=== PATIENT | female | born 1975 | race Caucasian/White ===

== ENCOUNTER 2017-03-17 19:33 | Emergency (ER) | payer MEDICAID ==
[2017-03-17] MEDS: DEXAMETHASONE 10 MG/ML 1 ML INJ IM (21:27)
[2017-03-17] MEDS: IPRATROPIUM (NEB) 0.5 MG/2.5 ML AMP HHN (22:02)
[2017-03-17] MEDS: ALBUTEROL 0.083% (NEB) 2.5 MG/3 ML AMP HHN (22:02)
[2017-03-17] MEDS: LEVALBUTEROL (NEB) 1.25 MG/0.5 ML AMP INH (23:33)
== END 2017-03-18 00:57 | disposition home or self-care (01) ==
LOC: FTE 03-18 00:57
DX: J45.901 Unspecified asthma with (acute) exacerbation (principal)
CPT/HCPCS: 94644; 94664; 96372; 99284-25

== ENCOUNTER 2017-12-10 17:30 | Emergency (ER) | payer MEDICAID ==
[2017-12-10 18:56] LABS: ADD MAN DIFF? NO
[2017-12-10 18:59] LABS: URINE BLOOD (Dip) POC Negative (NEGATIVE); URINE GLUCOSE (Dip) POC Negative (NEGATIVE); URINE KETONES (Dip) POC 1+ (NEGATIVE); URINE LEUKOCYTE EST (Dip) POC Negative (NEGATIVE); URINE NITRITE (Dip) POC Negative (NEGATIVE); URINE TOTAL PROTEIN POC 2+ (NEGATIVE)
[2017-12-10 18:59] LABS: URINE PH (Dip) POC 8.5 (5.0-8.5)
[2017-12-10 19:02] LABS: WHITE BLOOD COUNT 17.4 10^3/ul (4.8-10.8)
[2017-12-10 19:02] LABS: BASOPHILS % 0.2 % (0.0-2.0); HEMATOCRIT 41.4 % (37.0-47.0); HEMOGLOBIN 13.9 g/dl (12.0-16.0); LYMPHOCYTES # 1.4 10^3/ul (0.8-2.9); LYMPHOCYTES % 8.3 % (15.0-51.0); MEAN CORPUSCULAR HEMOGLOBIN 26.9 pg (29.0-33.0); MEAN CORPUSCULAR HGB CONC 33.6 g/dl (32.0-37.0); MEAN CORPUSCULAR VOLUME 80.1 fl (82.0-101.0); MONOCYTE # 0.7 10^3/ul (0.3-0.9); MONOCYTES % 3.9 % (0.0-11.0); NEUTROPHIL # 15.1 10^3/ul (1.6-7.5); NEUTROPHILS % 86.9 % (39.0-77.0); PLATELET COUNT 187 10^3/UL (140-415); RED BLOOD COUNT 5.17 10^6/ul (4.20-5.40); RED CELL DISTRIBUTION WIDTH 14.8 % (11.5-14.5)
[2017-12-10] MEDS: SODIUM CHLORIDE 0.9% 1L BAG IV* (19:11)
[2017-12-10] MEDS: ACETAMINOPHEN 325 MG TAB PO (19:12)
[2017-12-10 19:20] LABS: ADD UMIC YES; UR ASCORBIC ACID NEGATIVE (NEGATIVE); UR BACTERIA FEW /HPF (NONE SEEN); UR BILIRUBIN (Dip) NEGATIVE (NEGATIVE); UR BLOOD (Dip) NEGATIVE (NEGATIVE); UR CLARITY SLIGHTLY CLOUDY (CLEAR); UR COLOR YELLOW (YELLOW); UR GLUCOSE (Dip) NEGATIVE (NEGATIVE); UR KETONES (Dip) 1+ mg/dL (NEGATIVE); UR LEUKOCYTE ESTERASE (Dip) NEGATIVE Leu/ul (NEGATIVE); UR MUCUS FEW /HPF (NONE SEEN); UR NITRITE (Dip) NEGATIVE (NEGATIVE); UR RBC 5 /HPF (0-5); UR SPECIFIC GRAVITY (Dip) 1.023 (1.003-1.030); UR SQUAMOUS EPITHELIAL CELL MODERATE /HPF (FEW); UR TOTAL PROTEIN (Dip) 2+ mg/dl (NEGATIVE); UR UROBILINOGEN (Dip) 1+ mg/dL (NEGATIVE); UR WBC 3 /HPF (0-5)
[2017-12-10 19:21] LABS: INR 1.19; PROTIME 15.3 Sec (11.9-14.9); PT RATIO 1.2
[2017-12-10 19:22] LABS: ALANINE AMINOTRANSFERASE 35 IU/L (13-69); ALBUMIN 4.3 g/dl (3.3-4.9); ALBUMIN/GLOBULIN RATIO 1.07; ALKALINE PHOSPHATASE 108 IU/L (42-121); ANION GAP 11 (5-13); ASPARTATE AMINO TRANSFERASE 37 IU/L (15-46); BILIRUBIN,INDIRECT 1.1 mg/dl (0-1.1); BILIRUBIN,TOTAL 1.1 mg/dl (0.2-1.3); BLOOD UREA NITROGEN 7 mg/dl (7-20); CALCIUM 8.6 mg/dl (8.4-10.2); CARBON DIOXIDE 22 mmol/L (21-31); CHLORIDE 103 mmol/L (97-110); CREATININE 0.57 mg/dl (0.44-1.00); Estimated GFR > 60 mL/min (>60); GLUCOSE 122 mg/dl (70-220); PARTIAL THROMBOPLASTIN TIME 26.3 Sec (23.0-35.0); POTASSIUM 3.3 mmol/L (3.5-5.1); SODIUM 136 mmol/L (135-144); TOTAL PROTEIN 8.3 g/dl (6.1-8.1)
[2017-12-10] MEDS: IBUPROFEN 600 MG TAB PO (19:28)
[2017-12-10 19:33] LABS: TROPONIN-I < 0.012 ng/ml (0.000-0.120)
[2017-12-10] MEDS: POTASSIUM CHLORIDE (SR) 20 MEQ TAB PO (20:21)
[2017-12-10] MEDS: PENICILLIN G BENZ 1.2 MIL UNIT SYG IM (20:21)
== END 2017-12-10 21:27 | disposition home or self-care (01) ==
LOC: E/R 17:30
DX: J02.0 Streptococcal pharyngitis (principal); J45.909 Unspecified asthma, uncomplicated; E87.6 Hypokalemia; R10.13 Epigastric pain
CPT/HCPCS: 36415; 71045; 80053; 81001; 81003; 81025; 83605; 84484; 85025; 85610; 85730; 87040; 87086; 87400; 87880; 93005; 96372; 99285-25